=== PATIENT | female | born 1985 | race Two or more races ===

== ENCOUNTER 2022-11-12 04:51 | Emergency (ER) | payer OTHER ==
[~2022-11-12] VITALS: Ht 177.8 cm; Wt 63.5 kg
[2022-11-12] MEDS ORDERED: PEPCID AC20 MG PO (10:21)
[2022-11-12] MEDS ORDERED: LEVSIN/SL0.125 MG SL (10:21)
== END 2022-11-12 12:08 | disposition home or self-care (01) ==
LOC: ER 04:51
DX: N83.209 Unspecified ovarian cyst, unspecified side (principal); R10.9 Unspecified abdominal pain

== ENCOUNTER 2022-12-09 21:21 | Emergency (ER) | payer OTHER ==
[~2022-12-09] VITALS: Ht 170.2 cm; Wt 59.0 kg
[~2022-12-09 21:21] MED LIST: LEVSIN/SL0.125 MG SL; PEPCID AC20 MG PO
[2022-12-10] MEDS ORDERED: NEXIUM40 M1 PO (17:19)
[2022-12-10] MEDS ORDERED: PEPCID AC20 MG PO (17:19)
[2022-12-10] MEDS ORDERED: CARAFATE1 GM/10 ML PO (17:19)
== END 2022-12-10 17:25 | disposition home or self-care (01) ==
LOC: ER 21:21
DX: N83.209 Unspecified ovarian cyst, unspecified side (principal); K29.00 Acute gastritis without bleeding; R10.9 Unspecified abdominal pain; Z88.0 Allergy status to penicillin

== ENCOUNTER 2022-12-12 06:53 | Inpatient (IN) | payer OTHER ==
[~2022-12-12] VITALS: Ht 177.8 cm; Wt 56.7 kg
[~2022-12-12 06:53] MED LIST changes: +CARAFATE1 GM/10 ML PO; +NEXIUM40 M1 PO
[2022-12-23] MEDS ORDERED: PANTOPRAZOLE SO40 MG PO (10:37)
[2022-12-23] MEDS ORDERED: DOCUSATE SODIU100 MG PO (10:37)
[2022-12-23] MEDS ORDERED: PEPCID AC20 MG PO (10:39)
== END 2022-12-23 12:19 | disposition home or self-care (01) | DRG 760 ==
LOC: ER 06:53 → OB/GYN 12:05
PROVIDERS: ADMIT Obstetrics & Gynecology; ATTEND Obstetrics & Gynecology
PROC: BU4CZZZ Ultrasonography of Uterus and Ovaries (ICD-10-PCS; principal; 2022-12-12)
PROC: B246ZZZ Ultrasonography of Right and Left Heart (ICD-10-PCS; 2022-12-13)
PROC: BW30ZZZ Magnetic Resonance Imaging (MRI) of Abdomen (ICD-10-PCS; 2022-12-14)
PROC: BW30YZZ Magnetic Resonance Imaging (MRI) of Abdomen using Other Contrast (ICD-10-PCS; 2022-12-14)
PROC: BW3GZZZ Magnetic Resonance Imaging (MRI) of Pelvic Region (ICD-10-PCS; 2022-12-14)
PROC: BW3GYZZ Magnetic Resonance Imaging (MRI) of Pelvic Region using Other Contrast (ICD-10-PCS; 2022-12-14)
PROC: 0W9G3ZZ Drainage of Peritoneal Cavity, Percutaneous Approach (ICD-10-PCS; 2022-12-16)
PROC: 0DJ08ZZ Inspection of Upper Intestinal Tract, Via Natural or Artificial Opening Endoscopic (ICD-10-PCS; 2022-12-22)
DX: D27.1 Benign neoplasm of left ovary (principal); R18.8 Other ascites; D27.0 Benign neoplasm of right ovary; K29.00 Acute gastritis without bleeding; Z20.822 Contact with and (suspected) exposure to COVID-19
CPT/HCPCS: 72198; 74185